=== PATIENT | male | born 1945 | race Caucasian/White ===

== ENCOUNTER → 2016-08-18 17:37 | Emergency (ER) | payer MEDICARE, OTHER | END | disposition left against medical advice (07) | LOC: D.ER 17:37 | DX: Z02.9 Encounter for administrative examinations, unspecified (principal) ==

== ENCOUNTER 2017-03-22 22:06 | Emergency (ER) | payer MEDICARE, OTHER ==
[2017-03-22 22:35] LABS: BASOPHILS 0.5 % (0-2); EOSINOPHILS 3.7 % (0-7); HEMATOCRIT 43.5 % (42.0-54.0); HEMOGLOBIN 14.5 g/dL (13.5-17.5); IMMATURE GRANULOCYTES 0.1 % (0-5); LYMPHOCYTES 24.7 % (15-50); MCHC 33.3 g/dL (31.0-37.0); MCV 89.9 fL (80.0-100.0); MEAN PLATELET VOLUME 10.6 fL (7.4-10.4); PLATELET COUNT 174 10x3/uL (130-400); RBC 4.84 10x6/uL (4.20-6.10); RDW 14.3 % (11.5-14.5); WBC 8.5 10x3/uL (4.8-10.8)
[2017-03-22 22:46] LABS: ALBUMIN 3.7 g/dL (3.4-5.0); ANION GAP 10.2 mmol/L (8-16); BILIRUBIN - TOTAL 0.36 mg/dL (0.2-1.3); CALCIUM 8.9 mg/dL (8.5-10.1); CARBON DIOXIDE 28.7 mmol/L (21.0-32.0); CREATININE - SERUM 1.1 mg/dL (0.6-1.3); POTASSIUM - SERUM 3.9 mmol/L (3.5-5.1); PROTEIN - SERUM 6.4 g/dL (6.4-8.2)
== END 2017-03-22 23:50 | disposition home or self-care (01) ==
LOC: D.ER 22:06
PROVIDERS: Family Medicine
DX: M79.662 Pain in left lower leg (principal); I10 Essential (primary) hypertension; K21.9 Gastro-esophageal reflux disease without esophagitis; I48.2 Chronic atrial fibrillation; Z85.51 Personal history of malignant neoplasm of bladder

== ENCOUNTER → 2020-07-20 11:16 | Outpatient (CLI) | payer MEDICARE, OTHER ==
[2020-02-18 01:04] VITALS: BMI 24.8
[2020-07-20 13:30] LABS: T4 THYROXINE 8.6 ug/dL (4.7-13.3); THYROID STIMULATING HORMONE 1.46 uIU/mL (0.36-3.74)
== END | disposition home or self-care (01) ==
LOC: D.LAB 11:16
PROVIDERS: ATTEND Psychiatry & Neurology Neurology
DX: R41.3 Other amnesia (principal)

== ENCOUNTER → 2020-07-27 12:13 | Outpatient (CLI) | payer MEDICARE, OTHER ==
[2020-02-18 01:04] VITALS: BMI 24.8
== END | disposition home or self-care (01) ==
LOC: D.MRI 12:13
PROVIDERS: ATTEND Psychiatry & Neurology Neurology
DX: G30.9 Alzheimer's disease, unspecified (principal)